=== PATIENT | female | born 1980 | race Caucasian/White ===

== ENCOUNTER 2018-07-24 04:56 | Emergency (ER) | payer OTHER ==
[~2018-07-24] VITALS: Wt 50.0 kg
[2018-07-24] MEDS ORDERED: CEPHALEXIN 500 MG CAP PO ONE (07:30)
--- NOTE | 2018-07-24 08:22 | ERD ---
ER Documentation Chief Complaint Chief Complaint PATIENT BIB [facility] FROM [place] FOR PARANOID ABOUT BUGS IN EAR, POSS DRUG USE HPI This is a 37-year-old female presents the emergency room after being brought in by [employer] for a possible meth use. On my exam the patient is denying any homicidal or suicidal ideation and states that she thinks she has an ear infection on the last. The patient states that she put some nail macedonian on her ear to help with ear infection. She denies any fevers chills nausea vomiting ROS All systems reviewed and are negative except as per history of present illness. Medications Home Meds No Active Prescriptions or Reported Meds Allergies Allergies: Coded Allergies: No Known Allergy (Unverified , 10/19/15) PMhx/Soc Medical and Surgical Hx: pt denies Medical Hx, pt denies Surgical Hx Hx Psychiatric Problems: Yes (psychosis ) Hx Miscellaneous Medical Probl: Yes (DRUG ABUSE, aloc due to drug use ) Hx Alcohol Use: No Hx Substance Use: Yes (possible meth ) Hx Tobacco Use: Yes Smoking Status: Never smoker Physical Exam Vitals Vital Signs Date Temp Pulse Resp B/P (MAP) Pulse Ox O2 O2 Flow FiO2 Time Delivery Rate 07/24/18 98.1 99 19 131/81 100 Room Air 05:28 (98) 07/24/18 98.1 100 19 126/65 100 05:15 (85) Physical Exam INITIAL VITAL SIGNS: Reviewed by me GENERAL: The patient does have a disheveled appearance with nail macedonian on her ear and face HEENT: Pupils equal, round, and reactive to light. EOMI. There is no scleral icterus. NECK: C-spine is soft and supple, there is no meningismus. There is no cervical lymphadenopathy. LUNGS: Clear to auscultation bilaterally. There are no rales, wheezes or rhonchi. HEART: Regular rate and rhythm, no murmurs, clicks, rubs or gallops. ABDOMEN: Soft, non-tender, non-distended. There are bowel sounds in all four quadrants. No rebound or guarding. EXTREMITIES: There is no peripheral cyanosis or edema. No focal swelling or erythema. NEUROLOGICAL: The patient moves all four extremities with 5/5 strength. Cranial nerves II - XII are intact. Normal gait. Alert and oriented SKIN: There is no apparent rash or petechiae. HEME/LYMPHATIC: There is no evidence of excessive bruising or lymphedema. PSYCHIATRIC: The patient does not appear anxious or depressed. Result Diagram: 07/24/18 0730 07/24/18 0615 Results 24 hrs Laboratory Tests Test 07/24/18 06:08 07/24/18 06:15 07/24/18 07:30 Urine Color YELLOW Urine Clarity CLOUDY Urine pH 5.0 Urine Specific [place] 1.027 Urine Ketones TRACE mg/dL Urine Nitrite NEGATIVE mg/dL Urine Bilirubin NEGATIVE mg/dL Urine Urobilinogen 1+ mg/dL Urine Leukocyte Esterase 2+ Giacomo/ul Urine Microscopic RBC 12 /HPF Urine Microscopic WBC 63 /HPF Urine Squamous Epithelial Cells MODERATE /HPF Urine Calcium Oxalate Crystals MANY /HPF Urine Mucus MODERATE /HPF Urine Hemoglobin NEGATIVE mg/dL Urine Glucose NEGATIVE mg/dL Urine Total Protein NEGATIVE mg/dl Sodium Level 141 mmol/L Potassium Level 4.1 mmol/L Chloride Level 107 mmol/L Carbon Dioxide Level 26 mmol/L Anion Gap 8 Blood Urea Nitrogen 22 mg/dl Creatinine 0.92 mg/dl Est Glomerular Filtrat > 60 mL/min Rate mL/min Glucose Level 98 mg/dl Calcium Level 10.0 mg/dl Total Bilirubin 0.4 mg/dl Direct Bilirubin 0.00 mg/dl Indirect Bilirubin 0.4 mg/dl Aspartate Amino 61 IU/L Transf (AST/SGOT) Alanine 59 IU/L Aminotransferase (ALT/SGPT) Alkaline Phosphatase 55 IU/L Total Protein 7.7 g/dl Albumin 4.0 g/dl Globulin 3.70 g/dl Albumin/Globulin Ratio 1.08 Beta HCG, Quantitative < 2.4 mIU/ml Salicylates Level < 1.0 mg/dl Urine Opiates Screen Negative Acetaminophen Level < 10.0 ug/ml Urine Barbiturates Negative Urine Amphetamines Screen POSITIVE Urine Benzodiazepines Screen Negative Urine Cocaine Screen Negative Urine Cannabinoids Positive Ethyl Alcohol Level < 10.0 mg/dl White Blood Count 7.2 10^3/ul Red Blood Count 3.74 10^6/ul Hemoglobin 10.8 g/dl Hematocrit 33.3 % Mean Corpuscular Volume 89.0 fl Mean Corpuscular Hemoglobin 28.9 pg Mean Corpuscular 32.4 g/dl Hemoglobin Concent Red Cell Distribution Width 14.5 % Platelet Count 264 10^3/UL Mean Platelet Volume 9.4 fl Immature Granulocytes % 0.300 % Neutrophils % 58.8 % Lymphocytes % 31.3 % Monocytes % 8.6 % Eosinophils % 0.7 % Basophils % 0.3 % Nucleated Red Blood Cells % 0.0 /100WBC Immature Granulocytes # 0.020 10^3/ul Neutrophils # 4.2 10^3/ul Lymphocytes # 2.3 10^3/ul Monocytes # 0.6 10^3/ul Eosinophils # 0.1 10^3/ul Basophils # 0.0 10^3/ul Nucleated Red Blood Cells # 0.0 10^3/ul Current Medications Medications Dose Sig/Bill Start Time Status Last (Trade) Ordered Route PRN Stop Time Admin Dose Reason Admin Cephalexin 500 mg ONCE ONCE 07/24/18 DC (Keflex) PO 07:30 07/24/18 07:31 Procedures/MDM This 37-year-old female presents to the emergency room for evaluation of drug use. On my exam the patient had disheveled appearance, she did have nail macedonian on her left ear. The patient has no signs of infection however she does have a urinary tract infection. She denies any homicidal or suicidal ideation. The patient did take a shower in the emergency room and is feeling better at this time. She says she would like to go home. The patient is answering questions appropriately does not appear to be a threat to herself for the community. She will be discharged at this time with strict return precautions. She was offered resources however she is refusing. Departure Diagnosis: Primary Impression: Drug abuse Additional Impression: Acute cystitis Condition: Stable CLARY MCDANIEL DO Jul 24, 2018 08:22
[2018-07-24] MEDS ORDERED: CEPH-443 PO (08:23)
[2018-07-24 08:33] VITALS: BP 126/82; PULSE 88; RESP 18
== END 2018-07-24 08:38 | disposition home or self-care (01) ==
LOC: E/R 04:56
DX: F15.10 Other stimulant abuse, uncomplicated (principal); N30.00 Acute cystitis without hematuria; Z87.891 Personal history of nicotine dependence
CPT/HCPCS: 80053; 80307; 81001; 84702; 85025; Z7502; Z7610; 99283